=== PATIENT | female | born 1980 | race Two or more races ===

== ENCOUNTER → 2017-07-06 | Emergency (ER) | payer OTHER ==
[~2017-07-06] VITALS: Ht 152.4 cm; Wt 59.0 kg
[~2017-07-06] MED LIST: ACIDOPHILUS1 EAC3 PO; AMOXICILLIN500 M1 PO; MOTRIN800 MG PO; ULTRAM50 MG PO
== END | disposition home or self-care (01) ==
LOC: ER 04:07
DX: O26.891 Other specified pregnancy related conditions, first trimester (principal); R10.84 Generalized abdominal pain; Z34.01 Encounter for supervision of normal first pregnancy, first trimester

== ENCOUNTER 2018-09-21 10:53 | Emergency (ER) | payer OTHER ==
[~2018-09-21] VITALS: Ht 152.4 cm; Wt 63.5 kg
== END 2018-09-21 15:44 | disposition home or self-care (01) ==
LOC: ER 10:53
DX: B34.9 Viral infection, unspecified (principal); M79.18 Myalgia, other site

== ENCOUNTER 2018-10-21 12:38 | Emergency (ER) | payer OTHER ==
[~2018-10-21] VITALS: Ht 152.4 cm; Wt 63.5 kg
== END 2018-10-21 14:53 | disposition home or self-care (01) ==
LOC: ER 12:38
DX: S62.616A Displaced fracture of proximal phalanx of right little finger, initial encounter for closed fracture (principal); W18.39XA Other fall on same level, initial encounter; Y93.89 Activity, other specified; Y92.69 Other specified industrial and construction area as the place of occurrence of the external cause; Y99.8 Other external cause status

== ENCOUNTER 2019-04-05 20:18 | Emergency (ER) | payer OTHER ==
[~2019-04-05] VITALS: Ht 152.4 cm; Wt 63.5 kg
[2019-04-06] MEDS ORDERED: CLARITIN10 MG PO (02:03)
[2019-04-06] MEDS ORDERED: ZITHROMAX500 MG PO (02:03)
[2019-04-06] MEDS ORDERED: DOLOGEN CAPLET1 EACH PO (02:03)
[2019-04-06] MEDS ORDERED: TUSNEL LIQUID178 ML PO (02:03)
== END 2019-04-06 02:11 | disposition home or self-care (01) ==
LOC: ER 20:18
DX: J06.9 Acute upper respiratory infection, unspecified (principal)

== ENCOUNTER 2019-10-01 11:34 | Emergency (ER) | payer OTHER ==
[~2019-10-01] VITALS: Ht 152.4 cm; Wt 61.2 kg
[~2019-10-01 11:34] MED LIST changes: +CLARITIN10 MG PO; +DOLOGEN CAPLET1 EACH PO; +TUSNEL LIQUID178 ML PO; +ZITHROMAX500 MG PO
== END 2019-10-01 20:47 | disposition home or self-care (01) ==
LOC: ER 11:34
DX: K62.5 Hemorrhage of anus and rectum (principal); A04.8 Other specified bacterial intestinal infections; N83.292 Other ovarian cyst, left side

== ENCOUNTER 2020-01-15 14:36 | Emergency (ER) | payer OTHER ==
[~2020-01-15] VITALS: Ht 152.4 cm; Wt 63.5 kg
[2020-01-15] MEDS ORDERED: ZITHROMAX500 MG PO (17:24)
[2020-01-15] MEDS ORDERED: DOLOGEN CAPLET1 EACH PO (17:24)
== END 2020-01-15 18:05 | disposition home or self-care (01) ==
LOC: ER 14:36
DX: J06.9 Acute upper respiratory infection, unspecified (principal); B96.0 Mycoplasma pneumoniae [M. pneumoniae] as the cause of diseases classified elsewhere; M25.59 Pain in other specified joint; A31.8 Other mycobacterial infections

== ENCOUNTER 2020-03-09 19:49 | Emergency (ER) | payer OTHER ==
[~2020-03-09] VITALS: Ht 152.4 cm; Wt 61.2 kg
== END 2020-03-09 23:24 | disposition home or self-care (01) ==
LOC: ER 19:49
DX: M54.5 Low back pain (principal); M41.85 Other forms of scoliosis, thoracolumbar region

== ENCOUNTER 2022-02-26 17:17 | Emergency (ER) | payer OTHER ==
[~2022-02-26] VITALS: Ht 152.4 cm; Wt 61.2 kg
== END 2022-02-26 21:04 | disposition home or self-care (01) ==
LOC: ER 17:17
DX: N20.0 Calculus of kidney (principal); K76.0 Fatty (change of) liver, not elsewhere classified; N80.9 Endometriosis, unspecified; Z91.011 Allergy to milk products

== ENCOUNTER 2022-06-29 15:40 | Emergency (ER) | payer OTHER ==
[~2022-06-29] VITALS: Ht 162.6 cm; Wt 74.8 kg
[2022-06-29] MEDS ORDERED: ZOFRAN8 MG PO (18:40)
[2022-06-29] MEDS ORDERED: PEPCID AC20 MG PO (18:40)
== END 2022-06-29 18:51 | disposition home or self-care (01) ==
LOC: ER 15:40
DX: K52.89 Other specified noninfective gastroenteritis and colitis (principal); R10.11 Right upper quadrant pain; R10.12 Left upper quadrant pain; R11.0 Nausea; R11.10 Vomiting, unspecified; Z91.011 Allergy to milk products

== ENCOUNTER 2022-09-08 18:31 | Emergency (ER) | payer OTHER ==
[~2022-09-08] VITALS: Ht 152.4 cm; Wt 63.5 kg
[~2022-09-08 18:31] MED LIST changes: +PEPCID AC20 MG PO; +ZOFRAN8 MG PO
[2022-09-08] MEDS ORDERED: PROAIR RESPICL90 MCG IH (22:25)
[2022-09-08] MEDS ORDERED: XYZAL5 MG PO (22:26)
== END 2022-09-08 23:01 | disposition home or self-care (01) ==
LOC: ER 18:31
DX: J45.901 Unspecified asthma with (acute) exacerbation (principal); Z91.011 Allergy to milk products

== ENCOUNTER 2022-10-09 09:57 | Emergency (ER) | payer OTHER ==
[~2022-10-09] VITALS: Ht 152.4 cm; Wt 65.8 kg
[~2022-10-09 09:57] MED LIST changes: +PROAIR RESPICL90 MCG IH; +XYZAL5 MG PO
== END 2022-10-09 12:53 | disposition home or self-care (01) ==
LOC: ER 09:57
DX: S52.501A Unspecified fracture of the lower end of right radius, initial encounter for closed fracture (principal); S52.601A Unspecified fracture of lower end of right ulna, initial encounter for closed fracture; W19.XXXA Unspecified fall, initial encounter; Y93.9 Activity, unspecified; Y92.009 Unspecified place in unspecified non-institutional (private) residence as the place of occurrence of the external cause; Y99.9 Unspecified external cause status; Z91.011 Allergy to milk products

== ENCOUNTER 2023-06-12 19:23 | Emergency (ER) | payer OTHER ==
[~2023-06-12] VITALS: Ht 152.4 cm; Wt 68.0 kg
[2023-06-12 21:23] LABS: HEMATOCRIT 36.2 % (36.0-45.00); HEMOGLOBIN 12.6 g/dL (12.0-15.00); MEAN CELL VOLUME 96.5 fL (80.00-100.00); MEAN CORPUSCULAR HEMOGLOBIN 33.7 pg (27.00-32.0); MEAN CORPUSCULAR HGB CONC 34.9 g/dl (32.0-36.0); PLATELET COUNT 484 K/uL (150-450); RED BLOOD COUNT 3.75 M/uL (4.00-6.00); RED CELL DISTRIBUTION WIDTH 14.3 % (11.5-14.5)
[2023-06-12 22:29] LABS: ALBUMIN 3.7 gm/dL (3.4-5.0); BILIRUBIN TOTAL 0.27 mg/dL (0.3-1.2); CALCIUM 9.7 mg/dL (8.5-10.1); CREATININE SERUM 0.78 mg/dL (0.55-1.02); GFR 80.99; GLOBULINA 4.1 G/DL (2.4-3.5); POTASSIUM 4.33 mEq/L (3.5-5.1); TOTAL PROTEIN 7.8 gm/dL (6.4-8.2)
[2023-06-12] MEDS ORDERED: LEVOFLOXACIN750 MG PO (22:45)
== END 2023-06-13 00:07 | disposition home or self-care (01) ==
LOC: ER 19:23
PROVIDERS: General Practice
DX: J06.9 Acute upper respiratory infection, unspecified (principal); Z87.09 Personal history of other diseases of the respiratory system; Z91.011 Allergy to milk products; Z20.822 Contact with and (suspected) exposure to COVID-19

== ENCOUNTER 2023-09-07 18:22 | Emergency (ER) | payer OTHER ==
[~2023-09-07] VITALS: Ht 152.4 cm; Wt 68.0 kg
[~2023-09-07 18:22] MED LIST changes: +LEVOFLOXACIN750 MG PO
== END 2023-09-07 21:21 | disposition home or self-care (01) ==
LOC: ER 18:23
DX: J06.9 Acute upper respiratory infection, unspecified (principal); Z91.011 Allergy to milk products

== ENCOUNTER 2023-10-12 11:42 | Emergency (ER) | payer OTHER ==
[~2023-10-12] VITALS: Ht 152.4 cm; Wt 68.0 kg
[2023-10-12] MEDS ORDERED: TRAMADOL HCL 50 MG TABLET PO ONE (12:30)
[2023-10-12 13:08] LABS: HEMATOCRIT 36.1 % (36.0-45.00); HEMOGLOBIN 12.4 g/dL (12.0-15.00); MEAN CELL VOLUME 96.2 fL (80.00-100.00); MEAN CORPUSCULAR HEMOGLOBIN 33.2 pg (27.00-32.0); MEAN CORPUSCULAR HGB CONC 34.5 g/dl (32.0-36.0); PLATELET COUNT 484 K/uL (150-450); RED BLOOD COUNT 3.75 M/uL (4.00-6.00); RED CELL DISTRIBUTION WIDTH 14.7 % (11.5-14.5)
== END 2023-10-12 16:05 | disposition home or self-care (01) ==
LOC: ER 11:43
PROVIDERS: General Practice
DX: S39.82XA Other specified injuries of lower back, initial encounter (principal); V49.88XA Car occupant (driver) (passenger) injured in other specified transport accidents, initial encounter; Y93.89 Activity, other specified; Y92.89 Other specified places as the place of occurrence of the external cause; Y99.8 Other external cause status; R10.9 Unspecified abdominal pain; Z91.011 Allergy to milk products

== ENCOUNTER 2024-05-16 16:50 | Emergency (ER) | payer OTHER ==
[~2024-05-16] VITALS: Ht 152.4 cm; Wt 65.8 kg
[2024-05-16] MEDS ORDERED: IPRATROPIUM/ALBUTEROL SULFATE 3 ML AMPUL.NEB IH SCH (18:45)
[2024-05-16] MEDS ORDERED: METHYLPREDNISOLONE SOD SUCC 125 MG VIAL IV ONE (18:45)
[2024-05-16] MEDS ORDERED: GUAIFENESIN/DEXTROMETHORPHAN 100MG/10ML BLIST.PACK PO ONE (18:45)
[2024-05-16 19:08] LABS: HEMATOCRIT 37.6 % (36.0-45.00); HEMOGLOBIN 12.6 g/dL (12.0-15.00); MEAN CELL VOLUME 98.1 fL (80.00-100.00); MEAN CORPUSCULAR HEMOGLOBIN 32.8 pg (27.00-32.0); MEAN CORPUSCULAR HGB CONC 33.5 g/dl (32.0-36.0); PLATELET COUNT 454 K/uL (150-450); RED BLOOD COUNT 3.83 M/uL (4.00-6.00); RED CELL DISTRIBUTION WIDTH 13.7 % (11.5-14.5)
[2024-05-16 19:19] LABS: ABG PH 7.432 (7.35-7.45); ABG PO2 82.8 mmHg (80-100); ABG pCO2 36.7 mmHg (35-45); BASE EXCESS 0 mmol/l; BICARBONATE 23.9 mmol/l (23-25); SaO2 96.5 %
[2024-05-16 19:29] LABS: ALBUMIN 3.7 gm/dL (3.4-5.0); BILIRUBIN TOTAL 0.27 mg/dL (0.3-1.2); CALCIUM 9.3 mg/dL (8.5-10.1); CREATININE SERUM 0.7 mg/dL (0.55-1.02); GFR 91.33; GLOBULINA 4.3 G/DL (2.4-3.5); POTASSIUM 4.14 mEq/L (3.5-5.1)
[2024-05-16 21:06] LABS: allen test SATISFACTORY; o2 21 %; puncture site RADIAL RIGHT
[2024-05-16] MEDS ORDERED: MEDROLPACK PO (22:25)
[2024-05-16] MEDS ORDERED: SINGULAIR10 MG PO (22:25)
[2024-05-16] MEDS ORDERED: TUSSIN DM LIQU118 ML PO (22:25)
[2024-05-16] MEDS ORDERED: ALBUTEROL1.25 MG/3 IH (22:25)
[2024-05-16] MEDS ORDERED: LEVOFLOXACIN500 MG PO (22:25)
[2024-05-16] MEDS ORDERED: IPRATROPIU0.2 MG/1 M IH (22:25)
== END 2024-05-16 22:31 | disposition home or self-care (01) ==
LOC: ER 16:53
PROVIDERS: General Practice
DX: J06.9 Acute upper respiratory infection, unspecified (principal); J45.909 Unspecified asthma, uncomplicated; Z20.822 Contact with and (suspected) exposure to COVID-19; Z91.011 Allergy to milk products

== ENCOUNTER 2024-08-02 06:29 | Emergency (ER) | payer OTHER ==
[~2024-08-02] VITALS: Ht 152.4 cm; Wt 65.8 kg
[~2024-08-02 06:29] MED LIST changes: +ALBUTEROL1.25 MG/3 IH; +IPRATROPIU0.2 MG/1 M IH; +LEVOFLOXACIN500 MG PO; +MEDROLPACK PO; +SINGULAIR10 MG PO; +TUSSIN DM LIQU118 ML PO
[2024-08-02 09:04] LABS: BASO % 0.9 % (0.1-1.2); EOS # 0.29 (0.04-0.54); EOS % 2.8 % (0.7-7.0); HEMATOCRIT 33.3 % (34.1-44.9); HEMOGLOBIN 11.3 g/dL (11.2-15.7); LYMPH # 2.39 (1.18-3.74); LYMPH % 23.1 % (19.3-53.1); MONO # 0.67 (0.24-0.82); MONO % 6.5 % (4.7-12.5); NEUT # 6.84 (1.56-6.13); NEUT % 66.2 % (34.0-71.1); RED BLOOD COUNT 3.53 M/uL (3.93-5.22); RED CELL DISTRIBUTION WIDTH 14.4 % (11.6-14.4)
[2024-08-02 09:05] LABS: PLATELET COUNT 486 K/uL (163-369)
[2024-08-02 09:28] LABS: ALBUMIN 3.3 gm/dL (3.4-5.0); BILIRUBIN TOTAL 0.3 mg/dL (0.3-1.2); CREATININE SERUM 0.6 mg/dL (0.55-1.02); GFR 109.11; GLOBULINA 3.9 G/DL (2.4-3.5); POTASSIUM 4.01 mEq/L (3.5-5.1); TOTAL PROTEIN 7.2 gm/dL (6.4-8.2)
[2024-08-02 09:29] LABS: INR 0.97; PARTIAL THROMBOPLASTIN TIME 27.4 SECONDS (22.0-34.0); PROTHROMBIN TIME 10.6 SECONDS (9.0-11.5)
[2024-08-02 10:15] LABS: PH,URINE 7.5 (5.0-8.0); URINE APPEARANCE Clear; URINE BILIRRUBIN Negative (NEGATIVE); URINE BLOOD Negative; URINE COLOR Yellow; URINE GLUCOSE Negative (NEGATIVE); URINE KETONE Negative (NEGATIVE); URINE LEUKOCYTE Negative; URINE NITRATE Negative; URINE PROTEIN Negative (NEGATIVE); URINE UROBILINOGEN 0.2 E.U./dl
[2024-08-02 10:16] LABS: URINE BACTERIA 652.2 uL (0.0-1933); URINE EPITHELIAL CELLS 50.6 uL (0.0-38.8)
[2024-08-02 10:21] LABS: URINE RBC 1.7 uL (0.0-20.8)
== END 2024-08-02 15:45 | disposition home or self-care (01) ==
LOC: ER 07:06
PROVIDERS: Emergency Medicine
DX: O99.619 Diseases of the digestive system complicating pregnancy, unspecified trimester (principal); K57.30 Diverticulosis of large intestine without perforation or abscess without bleeding; Z91.011 Allergy to milk products; J45.909 Unspecified asthma, uncomplicated; F17.210 Nicotine dependence, cigarettes, uncomplicated; K62.5 Hemorrhage of anus and rectum; K92.89 Other specified diseases of the digestive system
CPT/HCPCS: 36415; 74177; Q9965

== ENCOUNTER 2024-08-13 10:09 | Emergency (ER) | payer OTHER ==
[~2024-08-13] VITALS: Ht 152.4 cm; Wt 65.8 kg
[2024-08-13] MEDS ORDERED: PROAIR RESPICL90 MCG (11:02)
[2024-08-13] MEDS ORDERED: 0.9 % SODIUM CHLORIDE 1,000 ML IV STA (11:27)
[2024-08-13] MEDS ORDERED: CEFTRIAXONE SODIUM 1,000 MG VIAL IV STA (11:36)
[2024-08-13] MEDS ORDERED: CEFTRIAXONE SODIUM 1,000 MG VIAL ONE (12:00)
[2024-08-13 12:35] LABS: BASO % 0.9 % (0.1-1.2); EOS # 0.25 (0.04-0.54); EOS % 2.4 % (0.7-7.0); HEMATOCRIT 35.3 % (34.1-44.9); LYMPH # 2.41 (1.18-3.74); LYMPH % 22.8 % (19.3-53.1); MEAN CORPUSCULAR HEMOGLOBIN 32.6 pg (25.6-32.2); MONO # 0.65 (0.24-0.82); MONO % 6.2 % (4.7-12.5); NEUT # 7.11 (1.56-6.13); NEUT % 67.2 % (34.0-71.1); PLATELET COUNT 482 K/uL (163-369); RED BLOOD COUNT 3.68 M/uL (3.93-5.22)
[2024-08-13 12:44] LABS: INR 0.95; PARTIAL THROMBOPLASTIN TIME 28.2 SECONDS (22.0-34.0); PROTHROMBIN TIME 10.4 SECONDS (9.0-11.5)
[2024-08-13 12:54] LABS: ALBUMIN 3.3 gm/dL (3.4-5.0); BILIRUBIN TOTAL 0.44 mg/dL (0.3-1.2); CALCIUM 9.1 mg/dL (8.5-10.1); CREATININE SERUM 0.58 mg/dL (0.55-1.02); GFR 113.46; GLOBULINA 4.2 G/DL (2.4-3.5); POTASSIUM 4.05 mEq/L (3.5-5.1); TOTAL PROTEIN 7.5 gm/dL (6.4-8.2)
[2024-08-13 13:39] LABS: PH,URINE 5.5 (5.0-8.0); URINE APPEARANCE Clear; URINE BILIRRUBIN Negative (NEGATIVE); URINE BLOOD Negative; URINE COLOR Yellow; URINE GLUCOSE Negative (NEGATIVE); URINE KETONE Negative (NEGATIVE); URINE LEUKOCYTE Negative; URINE NITRATE Negative; URINE PROTEIN Negative (NEGATIVE); URINE UROBILINOGEN 0.2 E.U./dl
[2024-08-13 13:43] LABS: URINE BACTERIA 128.4 uL (0.0-1933); URINE EPITHELIAL CELLS 19.9 uL (0.0-38.8)
== END 2024-08-13 16:56 | disposition home or self-care (01) ==
LOC: ER 10:28
DX: R30.0 Dysuria (principal); R10.2 Pelvic and perineal pain; O26.899 Other specified pregnancy related conditions, unspecified trimester; Z3A.01 Less than 8 weeks gestation of pregnancy; Z91.011 Allergy to milk products

== ENCOUNTER 2025-02-11 11:20 | Emergency (ER) | payer OTHER ==
[~2025-02-11] VITALS: Ht 152.4 cm; Wt 70.3 kg
[~2025-02-11 11:20] MED LIST changes: +PROAIR RESPICL90 MCG
[2025-02-11 11:50] VITALS: BP 130/82; O2SAT 99
[2025-02-11] MEDS ORDERED: KETOROLAC TROMETHAMINE 30 MG VIAL IM ONE (12:15)
[2025-02-11] MEDS ORDERED: KETOROLAC TROMETHAMINE 30 MG VIAL ONE (12:35)
[2025-02-11 13:25] LABS: ALT/SGPT 40.0 U/L (12-78); AST/SGOT 25.0 U/L (15-37); BASO % 1.1 % (0.1-1.2); BILIRUBIN TOTAL 0.28 mg/dL (0.3-1.2); BUN CREA RATIO 18.0 (7.0-25.0); CREATININE SERUM 0.62 mg/dL (0.55-1.02); EOS # 0.26 (0.04-0.54); EOS % 2.9 % (0.7-7.0); GFR 104.57; GLOBULINA 4.2 G/DL (2.4-3.5); GLUCOSE FASTING 95.0 mg/dL (65-100); LYMPH # 2.52 (1.18-3.74); LYMPH % 28.2 % (19.3-53.1); MEAN PLATELET VOLUME 10.40 fl (9.4-12.4); MONO # 0.55 (0.24-0.82); MONO % 6.2 % (4.7-12.5); NEUT # 5.45 (1.56-6.13); NEUT % 61.0 % (34.0-71.1); OSMOLALITY SERUM 284.0 MOSM/KG (275-295); RED CELL DISTRIBUTION WIDTH 13.7 % (11.6-14.4)
== END 2025-02-11 22:37 | disposition home or self-care (01) ==
LOC: ER 11:20
PROVIDERS: General Practice
DX: N93.8 Other specified abnormal uterine and vaginal bleeding (principal); N80.8 Other endometriosis; Z87.09 Personal history of other diseases of the respiratory system; Z91.0110 Allergy to milk products, unspecified

== ENCOUNTER 2025-03-07 00:09 | Emergency (ER) | payer OTHER ==
[~2025-03-07] VITALS: Ht 152.4 cm; Wt 70.3 kg
[2025-03-07] MEDS ORDERED: 0.9 % SODIUM CHLORIDE 1,000 ML IV STA (01:35)
[2025-03-07] MEDS ORDERED: TRAMADOL HCL 50 MG TABLET PO STA (01:36)
[2025-03-07] MEDS ORDERED: KETOROLAC TROMETHAMINE 15 MG VIAL IV STA (01:36)
[2025-03-07 02:43] LABS: BASO % 0.7 % (0.1-1.2); EOS # 0.49 (0.04-0.54); EOS % 3.0 % (0.7-7.0); LYMPH # 3.87 (1.18-3.74); LYMPH % 23.9 % (19.3-53.1); MEAN PLATELET VOLUME 9.60 fl (9.4-12.4); MONO # 0.87 (0.24-0.82); MONO % 5.4 % (4.7-12.5); NEUT # 10.80 (1.56-6.13); NEUT % 66.6 % (34.0-71.1); RED CELL DISTRIBUTION WIDTH 13.3 % (11.6-14.4)
[2025-03-07 02:58] LABS: URINE APPEARANCE Cloudy; URINE BILIRRUBIN Negative (NEGATIVE); URINE BLOOD Large; URINE COLOR Yellow; URINE GLUCOSE Negative (NEGATIVE); URINE KETONE Negative (NEGATIVE); URINE LEUKOCYTE Large; URINE NITRATE Negative; URINE UROBILINOGEN 1.0 E.U./dl
[2025-03-07 02:58] LABS: ALT/SGPT 47.0 U/L (12-78); AST/SGOT 35.0 U/L (15-37); BILIRUBIN TOTAL 0.31 mg/dL (0.3-1.2); BUN CREA RATIO 28.0 (7.0-25.0); CREATININE SERUM 0.57 mg/dL (0.55-1.02); GFR 115.22; GLOBULINA 4.0 G/DL (2.4-3.5); GLUCOSE FASTING 91.0 mg/dL (65-100); OSMOLALITY SERUM 286.0 MOSM/KG (275-295)
[2025-03-07 03:01] LABS: URINE BACTERIA 607.4 uL (0.0-1933); URINE CAST 0.99 uL (0.0-1.40); URINE EPITHELIAL CELLS 4.1 uL (0.0-38.8); URINE PROTEIN 100 (NEGATIVE); URINE WBC > 5548.3 uL (0.0-23.2)
[2025-03-07] MEDS ORDERED: CEFTRIAXONE SODIUM 2,000 MG VIAL IV STA (03:58)
== END 2025-03-07 05:26 | disposition home or self-care (01) ==
LOC: ER 00:10
PROVIDERS: General Practice
DX: N30.80 Other cystitis without hematuria (principal); Q63.2 Ectopic kidney; Z91.0110 Allergy to milk products, unspecified